=== PATIENT | female | born 1940 | race Hispanic/Latino ===

== ENCOUNTER 2022-09-06 08:30 | Emergency (ER) | payer MEDICARE ==
[~2022-09-06] VITALS: Ht 154.9 cm; Wt 41.7 kg
[2022-09-06] MEDS ORDERED: SODIUM CHLORIDE 0.9% 500ML 500 ML IV STA (08:53)
[2022-09-06 09:23] LABS: BASOPHILS % 0.5 % (0.0-1.0); EOSINOPHILS % 0.5 % (0.0-6.0); HEMATOCRIT 32.2 % (34.2-44.1); HEMOGLOBIN 10.5 g/dL (12.0-16.0); LYMPHOCYTES # (AUTO) 0.8 (1.0-3.2); LYMPHOCYTES % 20.1 % (18.0-39.1); MEAN CORPUSCULAR HEMOGLOBIN 32.3 pg (28-32); MEAN CORPUSCULAR HGB CONC 32.6 g/dL (31-35); MEAN CORPUSCULAR VOLUME 99.1 fL (81-99); MONOCYTES # (AUTO) 0.5 (0.2-0.8); NEUTROPHILS # (AUTO) 2.8 (2.1-6.9); NEUTROPHILS % 67.4 % (38.7-80.0); PLATELET COUNT 148 x10e3/uL (140-360); RED BLOOD COUNT 3.25 x10e6/uL (3.6-5.1); RED CELL DISTRIBUTION WIDTH 13.5 % (11.7-14.4)
[2022-09-06 09:54] LABS: ALBUMIN 3.7 g/dL (3.5-5.0); ALBUMIN/GLOBULIN RATIO 1.2 (0.8-2.0); CALCIUM 9.3 mg/dL (8.4-10.2); CREATININE, SERUM 0.88 mg/dL (0.57-1.11)
[2022-09-06] MEDS ORDERED: OMEPRAZOLE40 MG PO (10:27)
[2022-09-06] MEDS ORDERED: ONDANSETRON ODT4 MG PO (10:27)
[2022-09-06 11:46] LABS: LIPASE 27 U/L (8-78)
== END 2022-09-06 10:56 | disposition home or self-care (01) ==
LOC: ER 08:45
DX: R11.2 Nausea with vomiting, unspecified (principal); I10 Essential (primary) hypertension; E03.9 Hypothyroidism, unspecified; D64.9 Anemia, unspecified; K21.9 Gastro-esophageal reflux disease without esophagitis; M54.9 Dorsalgia, unspecified; G89.29 Other chronic pain; Z95.810 Presence of automatic (implantable) cardiac defibrillator
CPT/HCPCS: 36415; 71045; 80053; 83690; 84484; 85025; 93005; 99283